=== PATIENT | female | born 1995 | race Caucasian/White ===

== ENCOUNTER 2016-11-13 06:12 | Emergency (ER) | payer MEDICAID, OTHER ==
[2016-11-13 06:18] VITALS: RESP 18
[2016-11-13] MEDS ORDERED: KETOROLAC 30 MG/ML 1 ML VIAL IVP STA (06:34)
[2016-11-13] MEDS ORDERED: SODIUM CHLORIDE 0.9% 1,000 ML IV STA (06:34)
[2016-11-13] MEDS ORDERED: ONDANSETRON 4 MG/2 ML VIAL IVP STA (06:34)
--- NOTE | 2016-11-13 06:37 | ED ---
General Adult HPI - General Source: patient, RN notes reviewed Mode of arrival: ambulatory Limitations: no limitations <Frank Armstrong - Last Filed: 11/13/16 06:36> <Canelo Torres - Last Filed: 11/13/16 07:45> - General Chief complaint: Headache Stated complaint: headache,back pain Time Seen by Provider: 11/13/16 06:29 - History of Present Illness Initial comments: 20-year-old female with no significant past medical history presents for evaluation of headache and neck pain. Patient fell at work yesterday which was approximately 26 hours ago. She fell into a box of bagels. She is uncertain if she hit her head. There was no loss of consciousness. She has had worsening occipital headache and neck pain since that time. Denies any focal weakness. Does report nausea. No vision changes. No significant vomiting. No abdominal pain. No other injuries noted. (Frank Armstrong) - Related Data Home Medications Medication Instructions Recorded Confirmed Control (Unknown) 1 tab PO HS 11/13/16 11/13/16 Allergies Allergy/AdvReac Type Severity Reaction Status Date / Time No Known Allergies Allergy Verified 11/13/16 07:43 Review of Systems ROS Other: All systems not noted in ROS Statement are negative. <Frank Armstrong - Last Filed: 11/13/16 06:36> ROS Other: All systems not noted in ROS Statement are negative. <Canelo Torres - Last Filed: 11/13/16 07:45> ROS Statement: Those systems with pertinent positive or pertinent negative responses have been documented in the HPI. Past Medical History Past Medical History: No Reported History History of Any Multi-Drug Resistant Organisms: None Reported Past Surgical History: No Surgical Hx Reported Past Psychological History: No Psychological Hx Reported Smoking Status: Never smoker Past Alcohol Use History: None Reported Past Drug Use History: None Reported <Frank Armstrong - Last Filed: 11/13/16 06:36> General Exam Limitations: no limitations General appearance: alert, in no apparent distress Head exam: Present: atraumatic, normocephalic Eye exam: Present: normal appearance, PERRL ENT exam: Present: normal exam Neck exam: Present: normal inspection, tenderness (Bilateral trapezius tenderness to palpation, no midline tenderness) Respiratory exam: Present: normal lung sounds bilaterally. Absent: respiratory distress Cardiovascular Exam: Present: regular rate, normal rhythm GI/Abdominal exam: Present: soft. Absent: distended, tenderness Extremities exam: Present: normal inspection, full ROM, normal capillary refill. Absent: pedal edema Back exam: Present: full ROM. Absent: tenderness Neurological exam: Present: alert, oriented X3, CN II-XII intact. Absent: motor sensory deficit Psychiatric exam: Present: normal affect, normal mood Skin exam: Present: warm, dry, intact <Frank Armstrong - Last Filed: 11/13/16 06:36> General appearance: alert, in no apparent distress Head exam: Present: atraumatic, normocephalic, normal inspection Eye exam: Present: normal appearance, PERRL, EOMI. Absent: scleral icterus, conjunctival injection, periorbital swelling ENT exam: Present: normal exam, mucous membranes moist Neck exam: Present: normal inspection. Absent: tenderness, meningismus, lymphadenopathy Respiratory exam: Present: normal lung sounds bilaterally. Absent: respiratory distress, wheezes, rales, rhonchi, stridor Cardiovascular Exam: Present: regular rate, normal rhythm, normal heart sounds. Absent: systolic murmur, diastolic murmur, rubs, gallop, clicks GI/Abdominal exam: Present: soft, normal bowel sounds. Absent: distended, tenderness, guarding, rebound, rigid Extremities exam: Present: normal inspection, full ROM, normal capillary refill. Absent: tenderness, pedal edema, joint swelling, calf tenderness Back exam: Present: normal inspection Neurological exam: Present: alert, oriented X3, CN II-XII intact Psychiatric exam: Present: normal affect, normal mood Skin exam: Present: warm, dry, intact, normal color. Absent: rash <Canelo Torres - Last Filed: 11/13/16 07:45> Course <Frank Armstrong - Last Filed: 11/13/16 06:36> <Canelo Torres - Last Filed: 11/13/16 07:45> Vital Signs 11/13/16 06:15 Temperature 97.9 F Pulse Rate 81 Respiratory 18 Rate Blood Pressure 138/88 O2 Sat by Pulse 100 Oximetry - Reevaluation(s) Reevaluation #1: 11/13/16 07:44 The patient continues to complain of headache although she states that she does have history of chronic headaches prior headaches, usually takes she takes over- the-counter Tylenol and caffeine to help with headaches (Canelo Torres) Reevaluation #2: 11/13/16 07:44 Repeat exam and no neurological findings are noted, patient's headache is improved (Canelo Torres) Reevaluation #3: 11/13/16 07:45 Discussed positive risk benefits of CAT scan, with chronic headache in nature and no traumatic head injury, deciding against CAT scan at this time (Canelo Torres) Medical Decision Making <Frank Armstrong - Last Filed: 11/13/16 06:36> - Lab Data Result diagrams: 11/13/16 06:40 11/13/16 06:40 <Canelo Torres - Last Filed: 11/13/16 07:45> - Medical Decision Making 20 female in the ER for evaluation. Patient does state for evaluation regarding headache. Headache is chronic in nature, patient also admits to recent fall. No trauma or injury. All. Headache at this point is resolved. Patient will be discharged home (Canelo Torres) - Lab Data Lab Results 11/13/16 11/13/16 11/13/16 Range/Units 06:40 06:40 06:40 WBC 10.6 (4.0-11.0) k/uL RBC 5.12 (3.80-5.40) m/uL Hgb 14.4 (11.4-16.0) gm/dL Hct 42.6 (34.0-46.0) % MCV 83.3 (80.0-100.0) fL MCH 28.1 (25.0-35.0) pg MCHC 33.7 (31.0-37.0) g/dL RDW 13.3 (11.5-15.5) % Plt Count 487 H (150-450) k/uL Sodium 141 (137-145) mmol/L Potassium 3.4 L (3.5-5.1) mmol/L Chloride 104 (98-107) mmol/L Carbon Dioxide 22 (22-30) mmol/L Anion Gap 15 mmol/L BUN 10 (7-17) mg/dL Creatinine 0.67 (0.52-1.04) mg/dL Est GFR (MDRD) Af Amer >60 (>60 ml/min/1.73 sqM) Est GFR (MDRD) Non-Af >60 (>60 ml/min/1.73 sqM) Glucose 86 (74-99) mg/dL Calcium 9.7 (8.4-10.2) mg/dL Total Bilirubin 0.3 (0.2-1.3) mg/dL AST 25 (14-36) U/L ALT 27 (9-52) U/L Alkaline Phosphatase 118 (38-126) U/L Total Protein 8.2 (6.3-8.2) g/dL Albumin 4.7 (3.5-5.0) g/dL Urine Color Urine Appearance (Clear) Urine pH (5.0-8.0) Ur Specific Fitzhugh (1.001-1.035) Urine Protein (Negative) Urine Glucose (UA) (Negative) Urine Ketones (Negative) Urine Blood (Negative) Urine Nitrite (Negative) Urine Bilirubin (Negative) Urine Urobilinogen (<2.0) mg/dL Ur Leukocyte Esterase (Negative) Urine RBC (0-5) /hpf Urine WBC (0-5) /hpf Ur Squamous Epith Cells (0-4) /hpf Urine Mucus (None) /hpf Urine HCG, Qual Not Detected (Not Detectd) 11/13/16 Range/Units 06:40 WBC (4.0-11.0) k/uL RBC (3.80-5.40) m/uL Hgb (11.4-16.0) gm/dL Hct (34.0-46.0) % MCV (80.0-100.0) fL MCH (25.0-35.0) pg MCHC (31.0-37.0) g/dL RDW (11.5-15.5) % Plt Count (150-450) k/uL Sodium (137-145) mmol/L Potassium (3.5-5.1) mmol/L Chloride (98-107) mmol/L Carbon Dioxide (22-30) mmol/L Anion Gap mmol/L BUN (7-17) mg/dL Creatinine (0.52-1.04) mg/dL Est GFR (MDRD) Af Amer (>60 ml/min/1.73 sqM) Est GFR (MDRD) Non-Af (>60 ml/min/1.73 sqM) Glucose (74-99) mg/dL Calcium (8.4-10.2) mg/dL Total Bilirubin (0.2-1.3) mg/dL AST (14-36) U/L ALT (9-52) U/L Alkaline Phosphatase (38-126) U/L Total Protein (6.3-8.2) g/dL Albumin (3.5-5.0) g/dL Urine Color Yellow Urine Appearance Clear (Clear) Urine pH 6.0 (5.0-8.0) Ur Specific Fitzhugh 1.026 (1.001-1.035) Urine Protein 1+ H (Negative) Urine Glucose (UA) Negative (Negative) Urine Ketones Negative (Negative) Urine Blood Small H (Negative) Urine Nitrite Negative (Negative) Urine Bilirubin Negative (Negative) Urine Urobilinogen <2.0 (<2.0) mg/dL Ur Leukocyte Esterase Negative (Negative) Urine RBC 4 (0-5) /hpf Urine WBC 2 (0-5) /hpf Ur Squamous Epith Cells 2 (0-4) /hpf Urine Mucus Rare H (None) /hpf Urine HCG, Qual (Not Detectd) Disposition <Frank Armstrong - Last Filed: 11/13/16 06:36> <Canelo Torres - Last Filed: 11/13/16 07:45> Clinical Impression: Migraine, Headache Disposition: HOME SELF-CARE Condition: Good Instructions: Acute Headache (ED) Referrals: Brodie Rendon III, MD [Primary Care Provider] - 1-2 days
[2016-11-13 07:06] LABS: CH 26.6; CHCM 32.1; HCT 42.6 % (34.0-46.0); HGB 14.4 gm/dL (11.4-16.0); MCH 28.1 pg (25.0-35.0); MCHC 33.7 g/dL (31.0-37.0); MCV 83.3 fL (80.0-100.0); Mean Platelet Volume 7.4; RBC 5.12 m/uL (3.80-5.40); RDW 13.3 % (11.5-15.5); WBC 10.6 k/uL (4.0-11.0); WBC (Perox) 10.24
[2016-11-13 07:09] LABS: Appearance,Urine Clear (Clear); Bilirubin,Urine Negative (Negative); Glucose,Urine (UA) Negative (Negative); Ketones,Urine Negative (Negative); Leukocyte Esterase,Urine Negative (Negative); Mucus,Urine Rare /hpf; Nitrite,Urine Negative (Negative); Particle Count 4300; Protein,Urine 1+ (Negative); RBC,Urine 4 /hpf (0-5); Specific Gravity,Urine 1.026 (1.001-1.035); Squamous Epithelial Cell,Urine 2 /hpf (0-4); UA Billing (MACRO vs. MICRO) MICRO; Urobilinogen,Urine <2.0 mg/dL (<2.0); WBC,Urine 2 /hpf (0-5)
[2016-11-13 07:14] LABS: ALT 27 U/L (9-52); AST 25 U/L (14-36); Alkaline Phosphatase 118 U/L (38-126); Anion Gap 15 mmol/L; Blood Urea Nitrogen 10 mg/dL (7-17); Calcium 9.7 mg/dL (8.4-10.2); Carbon Dioxide 22 mmol/L (22-30); Chloride 104 mmol/L (98-107); Glucose 86 mg/dL (74-99); Non-African American GFR(MDRD) >60 (>60 ml/min/1.73 sqM); Potassium 3.4 mmol/L (3.5-5.1); Sodium 141 mmol/L (137-145); Total Bilirubin 0.3 mg/dL (0.2-1.3); Total Protein 8.2 g/dL (6.3-8.2)
[2016-11-13] MEDS ORDERED: MORPHINE SULFATE 4 MG/ML SYRINGE IVP STA (07:44)
[2016-11-13] MEDS ORDERED: diphenhydrAMINE 50 MG/ML 1 ML VIAL IVP STA (07:44)
[2016-11-13] MEDS ORDERED: PROCHLORPERAZINE 5 MG TAB PO STA (07:44)
[2016-11-13 07:53] LABS: Add Differential Manual Differential
[2016-11-13 07:59] LABS: Nucleated Red Blood Cells 0 /100 WBC (0-0); Total Cells Counted 200
[2016-11-13 08:11] VITALS: BP 129/72; PULSE 73
[2016-11-13 08:13] LABS: Reactive Lymphocytes Present
[2016-11-13 08:14] LABS: Manual Review Performed
[2016-11-13 08:15] LABS: Partial Thromboplastin Time 24.4 sec (22.0-30.0); Prothrombin Time 10.1 sec (9.0-12.0)
[2016-11-13 08:34] VITALS: TEMP 98
== END 2016-11-13 08:34 | disposition home or self-care (01) ==
LOC: EC 06:12
DX: G43.909 Migraine, unspecified, not intractable, without status migrainosus (principal); M54.2 Cervicalgia; R11.0 Nausea; Z79.3 Long term (current) use of hormonal contraceptives
CPT/HCPCS: 99284 ×2; 96374 ×2; 96375 ×4; 96361 ×2; 36415; 83880; 80053; 85025; 85610; 85730; 81001; 81025; S0183; J2270; J1200; J2405; J1885

== ENCOUNTER → 2017-02-01 | Outpatient (CLI) | payer BC ==
[2017-02-02 15:51] LABS: ALT 39 U/L (9-52); AST 27 U/L (14-36); Alkaline Phosphatase 103 U/L (38-126); Anion Gap 13 mmol/L; Blood Urea Nitrogen 10 mg/dL (7-17); Calcium 9.8 mg/dL (8.4-10.2); Carbon Dioxide 25 mmol/L (22-30); Chloride 104 mmol/L (98-107); Glucose 81 mg/dL (74-99); Non-African American GFR(MDRD) >60 (>60 ml/min/1.73 sqM); Potassium 4.1 mmol/L (3.5-5.1); Sodium 142 mmol/L (137-145); Total Bilirubin 0.3 mg/dL (0.2-1.3)
[2017-02-02 18:55] LABS: Cholesterol 181 mg/dL (<200); HDL Cholesterol 59 mg/dL (40-60)
== END | disposition home or self-care (01) ==
LOC: LABWHC1 10:42
PROVIDERS: ATTEND Nurse Practitioner Family
DX: Z13.29 Encounter for screening for other suspected endocrine disorder (principal); Z13.220 Encounter for screening for lipoid disorders
CPT/HCPCS: 36415; 80053; 80061; 84439; 84443

== ENCOUNTER → 2018-01-10 | Outpatient (CLI) | payer BC ==
--- NOTE | 2018-01-10 12:52 | US ---
EXAMINATION TYPE: US pelvic complete DATE OF EXAM: 01/10/2018 COMPARISON: NONE CLINICAL HISTORY: R10.9 Unspecified abdominal pain. Generalized pain TECHNIQUE: Transabdominal (TA). Transabdominal sonographic images of the pelvis were acquired. Date of LMP: 11/09/2017, G0 EXAM MEASUREMENTS: Uterus: 6.8 x 3.0 x 2.7 cm Endometrial Stripe: 0.3 cm Right Ovary: 2.7 x 1.4 x 1.7 cm Left Ovary: 3.1 x 1.8 x 1.5 cm 1. Uterus: Anteverted wnl 2. Endometrium: wnl 3. Right Ovary: wnl 4. Left Ovary: wnl 5. Bilateral Adnexa: wnl 6. Posterior cul-de-sac: no free fluid Cervix- wnl IMPRESSION: No distinct abnormality appreciated.
== END | disposition home or self-care (01) ==
LOC: RADUSWWP 12:13
PROVIDERS: ATTEND Family Medicine
DX: R10.9 Unspecified abdominal pain (principal)
CPT/HCPCS: 76856

== ENCOUNTER → 2018-12-01 | Outpatient (CLI) | payer BC ==
[2018-12-01 15:23] LABS: Basophils % (A) 0 %; Eosinophils # (A) 0.1 k/uL (0-0.7); Eosinophils % (A) 1 %; HCT 42.6 % (34.0-46.0); HGB 14.1 gm/dL (11.4-16.0); Lymphocytes # (A) 3.1 k/uL (1.0-4.8); Lymphocytes % (A) 29 %; MCH 28.4 pg (25.0-35.0); MCHC 33.2 g/dL (31.0-37.0); MCV 85.4 fL (80.0-100.0); Monocytes # (A) 0.6 k/uL (0-1.0); Monocytes % (A) 5 %; Neutrophils # (A) 6.6 k/uL (1.3-7.7); Neutrophils % (A) 62 %; Platelet Count 676 k/uL (150-450); RBC 4.99 m/uL (3.80-5.40); RDW 13.1 % (11.5-15.5); WBC 10.6 k/uL (3.8-10.6)
[2018-12-01 18:27] LABS: ALT 36 U/L (8-44); AST 22 U/L (13-35); African American GFR (CKD) 142.5 (60.0-200.0); Albumin/Globulin Ratio 2.35 (1.60-3.17); Alkaline Phosphatase 106 U/L (41-126); BUN/Creat Ratio 14.29 Ratio (12.00-20.00); Calcium 10.2 mg/dL (8.7-10.3); Carbon Dioxide 27.4 mmol/L (21.6-31.8); Chloride 106 mmol/L (96-109); Glucose 102 mg/dL (70-110); Potassium 4.7 mmol/L (3.5-5.5); Sodium 140 mmol/L (135-145); Total Bilirubin 0.3 mg/dL (0.3-1.2); Total Protein 6.7 g/dL (6.2-8.2)
[2018-12-01 18:44] LABS: HCG,Quantitative Serum <2.0 mIU/mL
== END | disposition home or self-care (01) ==
LOC: LABWHC1 14:27
PROVIDERS: ATTEND Nurse Practitioner Family
DX: R42 Dizziness and giddiness (principal); N91.2 Amenorrhea, unspecified
CPT/HCPCS: 36415; 80053; 84439; 84443; 84702; 85025

== ENCOUNTER → 2019-01-15 | Outpatient (CLI) | payer BC ==
--- NOTE | 2019-01-16 08:33 | ECHOF ---
Referral Reason:R42 dizziness MEASUREMENTS -------- HEIGHT: 165.1 cm WEIGHT: 97.5 kg BP: IVSd: 0.9 cm (0.6 - 1.1) LVIDd: 4.3 cm (3.9 - 5.3) LVPWd: 0.9 cm (0.6 - 1.1) IVSs: 1.7 cm LVIDs: 1.8 cm LVPWs: 1.9 cm LAESV Index (A-L): 15.36 ml/m Ao Diam: 2.3 cm (2.0 - 3.7) AV Cusp: 1.8 cm (1.5 - 2.6) LA Diam: 3.0 cm (2.7 - 3.8) MV EXCURSION: 20.824 mm (> 18.000) MV EF SLOPE: 116 mm/s (70 - 150) EPSS: 0.5 cm MV E Ez: 1.06 m/s MV DecT: 260 ms MV A Ez: 0.48 m/s MV E/A Ratio: 2.20 RAP: 5.00 mmHg RVSP: 30.49 mmHg FINDINGS -------- Sinus rhythm. This was a technically good study. The left ventricular size is normal. Left ventricular wall thickness is normal. Overall left vent ricular systolic function is normal with, an EF between 55 - 60 %. The diastolic filling pattern is normal for the age of the patient 10.90. The right ventricle is normal in size. The left atrial size is normal. Normal LA size by volume 22+/-6 ml/m2. The right atrial size is normal. Interatrial and interventricular septum intact. The aortic valve is trileaflet and appears structurally normal. The mitral valve is normal. There is trace mitral regurgitation. The tricuspid valve appears structurally normal. Trace tricuspid regurgitation present. Right fabricio tricular systolic pressure is normal at < 35 mmHg. There is no pulmonic regurgitation present. The aortic root size is normal. Normal inferior vena cava with normal inspiratory collapse consistent with estimated right atrial pre ssure of 5 mmHg. There is no pericardial effusion. CONCLUSIONS -------- 1. Sinus rhythm. 2. This was a technically good study. 3. The left ventricular size is normal. 4. Left ventricular wall thickness is normal. 5. Overall left ventricular systolic function is normal with, an EF between 55 - 60 %. 6. The diastolic filling pattern is normal for the age of the patient 10.90 7. The right ventricle is normal in size. 8. The left atrial size is normal. 9. Normal LA size by volume 22+/-6 ml/m2. 10. The right atrial size is normal. 11. Interatrial and interventricular septum intact. 12. The aortic valve is trileaflet and appears structurally normal. 13. The mitral valve is normal. 14. There is trace mitral regurgitation. 15. The tricuspid valve appears structurally normal. 16. Trace tricuspid regurgitation present. 17. Right ventricular systolic pressure is normal at < 35 mmHg. 18. There is no pulmonic regurgitation present. 19. The aortic root size is normal. 20. Normal inferior vena cava with normal inspiratory collapse consistent with estimated right atrial pressure of 5 mmHg. 21. There is no pericardial effusion. ENVIRONMENTAL SERVICES SPECIALIST: Haylie Kaba RDCS
== END | disposition home or self-care (01) ==
LOC: RADECHMAIN 13:05
PROVIDERS: ATTEND Nurse Practitioner Family
DX: R42 Dizziness and giddiness (principal); Z88.0 Allergy status to penicillin
CPT/HCPCS: 93005; 93306

== ENCOUNTER → 2022-09-05 | Outpatient (CLI) | payer BC | END | disposition home or self-care (01) | LOC: LABWHC1 11:40 | PROVIDERS: ATTEND Physician Assistant | DX: O20.0 Threatened abortion (principal); Z3A.00 Weeks of gestation of pregnancy not specified | CPT/HCPCS: 36415; 84702 ==

== ENCOUNTER → 2022-12-19 | Outpatient (CLI) | payer BC | END | disposition home or self-care (01) | LOC: LABWHC1 15:18 | PROVIDERS: ATTEND Obstetrics & Gynecology | DX: O20.0 Threatened abortion (principal); Z3A.00 Weeks of gestation of pregnancy not specified | CPT/HCPCS: 36415; 84702 ==

== ENCOUNTER → 2022-12-21 | Outpatient (CLI) | payer BC | END | disposition home or self-care (01) | LOC: LABWHC1 10:50 | PROVIDERS: ATTEND Obstetrics & Gynecology | DX: O20.0 Threatened abortion (principal); Z3A.00 Weeks of gestation of pregnancy not specified | CPT/HCPCS: 36415; 84702 ==

== ENCOUNTER 2023-05-03 20:42 | Emergency (ER) | payer OTHER, BC ==
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
[2023-05-03 21:27] LABS: Basophils # (A) 0.1 k/uL (0-0.2); Basophils % (A) 0 %; Eosinophils # (A) 0.2 k/uL (0-0.7); Eosinophils % (A) 1 %; HCT 38.6 % (34.0-46.0); HGB 12.7 gm/dL (11.4-16.0); Lymphocytes # (A) 3.2 k/uL (1.0-4.8); Lymphocytes % (A) 18 %; MCH 28.4 pg (25.0-35.0); MCHC 32.9 g/dL (31.0-37.0); MCV 86.2 fL (80.0-100.0); Mean Platelet Volume 9.2; Monocytes % (A) 5 %; Neutrophils # (A) 12.8 k/uL (1.3-7.7); Neutrophils % (A) 74 %; Platelet Count 312 k/uL (150-450); RBC 4.48 m/uL (3.80-5.40); RDW 13.1 % (11.5-15.5); WBC 17.4 k/uL (3.8-10.6)
[2023-05-03 21:32] LABS: Potassium 3.6 mmol/L (3.5-5.1)
[2023-05-03 21:34] LABS: ALT 15 U/L (4-34); AST 24 U/L (14-36); African American GFR (CKD) >90 (>60 ml/min/1.73 sqM); Albumin 3.9 g/dL (3.5-5.0); Alcohol <10 mg/dL; Alkaline Phosphatase 101 U/L (38-126); Anion Gap 11 mmol/L; Blood Urea Nitrogen 11 mg/dL (7-17); Calcium 9.2 mg/dL (8.4-10.2); Carbon Dioxide 15 mmol/L (22-30); Chloride 110 mmol/L (98-107); Glucose 96 mg/dL (74-99); Non-African American GFR(CKD) >90 (>60 ml/min/1.73 sqM); Sodium 136 mmol/L (137-145); Total Bilirubin 0.3 mg/dL (0.2-1.3); Total Protein 7.1 g/dL (6.3-8.2)
[2023-05-03 21:36] VITALS: TEMP 98.7
[2023-05-03 21:37] LABS: INR 0.9 (<1.2); Partial Thromboplastin Time 22.7 sec (22.0-30.0); Prothrombin Time 9.8 sec (10.0-12.5)
[2023-05-03 22:11] LABS: Amorphous Sediment,Urine Rare /hpf; Appearance,Urine Cloudy (Clear); Bacteria,Urine Rare /hpf; Bilirubin,Urine Negative (Negative); Blood,Urine Negative (Negative); Color,Urine Yellow; Glucose,Urine (UA) Negative (Negative); Hyaline Casts,Urine 3 /lpf (0-2); Ketones,Urine Negative (Negative); Leukocyte Esterase,Urine Moderate (Negative); Mucus,Urine Many /hpf; Nitrite,Urine Negative (Negative); Protein,Urine 1+ (Negative); RBC,Urine 2 /hpf (0-5); Specific Gravity,Urine 1.026 (1.001-1.035); Squamous Epithelial Cell,Urine 13 /hpf (0-4); Urobilinogen,Urine <2.0 mg/dL (<2.0); WBC,Urine 17 /hpf (0-5)
[2023-05-03 22:21] LABS: Amphetamine Screen,Urine Not Detected (NotDetected); Barbiturate Screen,Urine Not Detected (NotDetected); Benzodiazepines Screen,Urine Not Detected (NotDetected); Cocaine Screen,Urine Not Detected (NotDetected); Methadone Screen, Urine Not Detected (NotDetected); Opiate Screen,Urine Not Detected (NotDetected); Oxycodone Screen, Urine Not Detected (NotDetected); Phencyclidine Screen,Urine Not Detected (NotDetected); Tricyclic Antidepressant,Urine Not Detected (NotDetected); Urn Cannabinoid Scrn Not Detected (NotDetected)
[2023-05-03 22:52] VITALS: BP 138/80; PULSE 82; RESP 18
== END 2023-05-03 22:30 | disposition home or self-care (01) ==
LOC: EC 20:42
DX: O9A.212 Injury, poisoning and certain other consequences of external causes complicating pregnancy, second trimester (principal); S80.02XA Contusion of left knee, initial encounter; S80.01XA Contusion of right knee, initial encounter; Z88.0 Allergy status to penicillin; V89.2XXA Person injured in unspecified motor-vehicle accident, traffic, initial encounter; Y92.410 Unspecified street and highway as the place of occurrence of the external cause; Z3A.00 Weeks of gestation of pregnancy not specified
CPT/HCPCS: 36415; 80053; 80306; 80320; 81001; 85025; 85610; 85730; 86850; 86900; 86901; 99284

== ENCOUNTER 2023-08-14 05:41 | Inpatient (IN) | payer BC ==
[2023-08-14] MEDS ORDERED: LIDOCAINE 0.5% (PF) 5 MG/ML (50 ML SDV) SQ PRN (06:00)
[2023-08-14] MEDS ORDERED: TERBUTALINE 1 MG/ML VIAL SQ PRN (06:00)
[2023-08-14] MEDS ORDERED: miSOPROStoL 200 MCG TAB PO PRN (06:00)
[2023-08-14] MEDS ORDERED: TRANEXAMIC 1,000 MG/100ML-NACL 1,000 MG in EMPTY BAG 1 BAG IV PRN (06:00)
[2023-08-14] MEDS ORDERED: CARBOPROST TROMETHAMINE 250 MCG/ML 1 ML AMP IM PRN (06:00)
[2023-08-14] MEDS ORDERED: OXYTOCIN 10 UNIT/ML 1 ML VIAL IM PRN (06:00)
[2023-08-14] MEDS ORDERED: miSOPROStoL 200 MCG TAB RECTAL PRN (06:00)
[2023-08-14] MEDS ORDERED: METHYLERGONOVINE 0.2 MG/ML 1 ML AMP IM PRN (06:00)
[2023-08-14] MEDS: LACTATED RINGERS 1,000 ML IV SCH ×2 (06:28→23:16)
[2023-08-14] MEDS: OXYTOCIN 30 UNITS/500 ML NS 30 UNIT in SALINE 1 500ML.BAG IV SCH (07:09)
[2023-08-14 08:44] LABS: Basophils % (A) 0 %; Eosinophils # (A) 0.1 k/uL (0-0.7); Eosinophils % (A) 0 %; HCT 33.2 % (34.0-46.0); HGB 10.2 gm/dL (11.4-16.0); Hypochromasia Moderate; Lymphocytes # (A) 2.4 k/uL (1.0-4.8); Lymphocytes % (A) 17 %; MCH 23.6 pg (25.0-35.0); MCHC 30.6 g/dL (31.0-37.0); MCV 76.9 fL (80.0-100.0); Mean Platelet Volume 9.7; Microcytosis Slight; Monocytes # (A) 0.7 k/uL (0-1.0); Monocytes % (A) 5 %; Neutrophils # (A) 11.2 k/uL (1.3-7.7); Neutrophils % (A) 77 %; Platelet Count 361 k/uL (150-450); RBC 4.31 m/uL (3.80-5.40); RDW 15.1 % (11.5-15.5); WBC 14.6 k/uL (3.8-10.6)
[2023-08-14] MEDS ORDERED: NALBUPHINE 10 MG/ML (10 ML MDV) IV PRN (08:45)
--- NOTE | 2023-08-14 08:45 | P.HPOB ---
History of Present Illness H&P Date: 08/14/23 Chief Complaint: 39-2/7 weeks, induction The patient is a 27-year-old 2 para 0-0-1-0 admitted at 39-2/7 weeks as established by last menstrual period and confirmed by 6-week ultrasound. She is admitted for elective induction of labor with all signs reassuring and a favorable cervix, there is a category 1 heart rate tracing. Her has been entirely uncomplicated though she is known to be group B strep positive. Obstetrical history: 2 para 0-0-1-0 with current statistics listed in history of present illness. EDC of 08/19/2023 was established by last menstrual period and confirmed by 6-week ultrasound. Laboratory workup demonst rates a blood type of O+ with a negative antibody screen. Rubella status is immune. The remainder of the laboratory workup was within normal limits. Early Glucola and second trimester Glucola were both negative. Group B strep status is positive. Gynecologic history: Unremarkable with no history of any infections to include STDs. Review of Systems Review of systems is confined to history of present illness. Past Medical History Past Medical History: No Reported History History of Any Multi-Drug Resistant Organisms: None Reported Past Surgical History: No Surgical Hx Reported Past Psychological History: No Psychological Hx Reported Smoking Status: Never smoker Past Alcohol Use History: None Reported Past Drug Use History: None Reported Medications and Allergies Home Medications Medication Instructions Recorded Confirmed Type Acetaminophen Tab [Tylenol Tab] 1,000 mg PO Q6HR PRN 09/03/22 08/14/23 History Kit-Ofea-Srtrm Acid 1 cap PO DAILY 09/03/22 08/14/23 History [-U Capsule (formulary)] Allergies Allergy/AdvReac Type Severity Reaction Status Date / Time Penicillins Allergy Unknown Verified 09/03/22 12:34 Childhood Exam Vital Signs Temp Pulse Resp BP Pulse Ox 08/14/23 05:57 97.7 F 88 16 118/72 98 Intake and Output 08/13/23 08/14/23 08/14/23 22:59 06:59 14:59 Other: # Voids 1 Weight 101.151 kg In general, this is a well-developed, well-nourished white female in no acute distress. Her heart has a regular rhythm and rate without murmur. Her lungs are clear to auscultation bilaterally in all arias. Her abdomen is gravid, nondistended, has normal active bowel sounds, is soft, nontender, and without any palpable masses aside from the uterine fundus. Her extremities are without any cyanosis, clubbing, or significant edema and are nontender to palpation bilaterally. Digital cervical examination demonstrates her cervix to be 2 to 3 cm dilated, approximately 50% effaced, with a vertex and presentation at -2 station. Artificial rupture of membranes is carried out demonstrating clear fluid. Assessment and Plan (1) Term Current Visit: Yes Status: Acute Code(s): Z34.90 - ENCNTR FOR SUPRVSN OF NORMAL , UNSP, UNSP TRIMESTER SNOMED Code(s): 14887353 (2) Mother positive for group B Streptococcus colonization Current Visit: Yes Status: Acute Code(s): P00.82 - NB AFF BY (POSITIVE) MATERN GROUP B STREP (GBS) COLONIZATION SNOMED Code(s): 95168947957374 Plan: Is admitted for elective induction of labor with all signs reassuring. Pitocin augmentation has been started and artificial rupture of membranes carried out. Antibiotic prophylaxis has been started. She will have close maternal and surveillance and expectant management will be practiced. She is a good candidate for either IV, epidural, or nitrous analgesia, whichever she may choose.
[2023-08-14] MEDS: CITRIC ACID-SODIUM CITRATE 15 ML CUP PO ONE (20:44)
[2023-08-14] MEDS ORDERED: KETOROLAC 15 MG/ML 1 ML VIAL ONE (21:44)
[2023-08-14] MEDS ORDERED: MORPHINE SULFATE (PF) 0.3 MG/0.3 ML SYR ONE (21:44)
[2023-08-14] MEDS ORDERED: METOCLOPRAMIDE 5 MG/ML 2 ML VIAL IVP PRN (22:38)
[2023-08-14] MEDS ORDERED: NALOXONE 0.4 MG/ML 1 ML VIAL IV PRN (22:38)
[2023-08-14] MEDS ORDERED: ONDANSETRON 4 MG/2 ML VIAL IVP PRN (22:38)
[2023-08-14] MEDS ORDERED: diphenhydrAMINE 50 MG/ML 1 ML VIAL IVP PRN (22:38)
[2023-08-14] MEDS ORDERED: diphenhydrAMINE 50 MG CAP PO PRN (22:38)
[2023-08-14] MEDS ORDERED: ZOLPIDEM 5 MG TAB PO PRN (22:38)
[2023-08-14] MEDS ORDERED: SIMETHICONE 80 MG CHEWABLE PO PRN (22:38)
[2023-08-14] MEDS ORDERED: LANOLIN CREAM 1 GM TUBE TOPICAL PRN (22:38)
[2023-08-14] MEDS ORDERED: diphenhydrAMINE 25 MG CAP PO PRN (22:38)
[2023-08-14] MEDS ORDERED: OXYTOCIN 30 UNITS/500 ML NS 30 UNIT in SALINE 1 500ML.BAG IV SCH (22:45)
--- NOTE | 2023-08-14 22:45 | P.OP ---
Date of Procedure: 08/14/23 Preoperative Diagnosis: 1. 40-0/7 weeks, induction #2. Maternal request for primary section Postoperative Diagnosis: Same plus #3. Right occiput transverse position Procedure(s) Performed: #1. Primary low-transverse section, maternal request Anesthesia: spinal Surgeon: Mario Galan Scallop Cutter #1: Petra Wall Estimated Blood Loss (ml): 555 IV fluids (ml): 500 Urine output (ml): 100 Pathology: none sent Condition: stable Disposition: floor Operative Findings: Patient had been in labor all day and progressed ultimately to approximately 8 cm dilation with very little descent of the head below -2 station. A significant degree of caput and molding was noted to be present. She remained approximately 8 to 9 cm for approximately 4 to 6 hours at which time she requested to proceed to primary low-transverse section. She was taken to the operating room where she was delivered of a viable 7 pound 8 ounce baby boy with Apgars of 8 at 1 minute and 9 at 5 minutes in the right occiput transverse position. The placenta was delivered manually, intact, and grossly normal with a grossly normal three-vessel cord. The uterus, tubes, and ovaries were entirely normal to inspection though there was some very small, less than half centimeter subserosal fibroids on the posterior aspect of the uterus. Description of Procedure: Patient was prepped and draped in usual fashion after spinal anesthesia was administered by the anesthesiologist. A Pfannenstiel incision was made and extended into the abdominal cavity without difficulty. The bladder peritoneum was significantly distal to the intended site of uterine incision and was left intact. A 2 cm incision was made in the transverse plane of the lower uterine segment to enter the uterus at which time clear fluid was again noted. The incision was extended in both directions using the bandage scissors. The head was wedged into the pelvis fairly tightly though not deep. The head was elevated up and through the incision where the nose and mouth were thoroughly suctioned. The remainder of the was delivered onto the field where the cord was doubly clamped, cut, and the passed for resuscitative measures with weight and Apgars as noted above. The placenta was then delivered manually, intact, grossly normal with a grossly normal three-vessel cord as noted above. The uterus was exteriorized and the anterior cavity of the uterus swept of any remaining placental or membranous fragments. The margins of the uterine incision were grasped with Mitchell clamps and the incision closed in 2 layers. The first layer was a running locking stitch of 0 chromic catgut followed by a running imbricating stitch of 0 chromic catgut, each from margin to margin. There was noted to be some ongoing bleeding at the left angle of the incision which was made hemostatic with a single [id number]-[id number] stitch of 0 chromic catgut. The posterior cul-de-sac was suctioned with a guard and the uterus was replaced within the abdominal cavity after noting normal uterine and ovarian findings. The incision was reexamined and noted to be hemostatic. The gutters were swept of any remaining blood, fluid, or clot. The parietal peritoneum was loosely reapproximated and the layer of muscles examined and made hemostatic with the Bovie. The fascia was closed with a single running stitch of 0 Vicryl proceeding from the lateral margin the opposite lateral margin. The subcutaneous tissues were irrigated, made hemostatic with the Bovie, and reapproximated with a running stitch of 3-0 plain catgut. The skin was reapproximated with a running subcuticular stitch of 4-0 Vicryl followed by half-inch Steri-Strips placed with Mastisol. Quantitative blood loss for the case was 555 mL. There were no complications. All sponge, instrument, and needle counts were correct. The patient tolerated the procedure well and proceeded to the recovery room in stable condition. Both mother and are resting comfortably in recovery.
[2023-08-15] MEDS: diphenhydrAMINE 50 MG/ML 1 ML VIAL IVP PRN (00:18)
[2023-08-15] MEDS: ACETAMINOPHEN TAB 500 MG TAB PO SCH (03:43)
[2023-08-15] MEDS: KETOROLAC 15 MG/ML 1 ML VIAL IVP PRN (05:21)
[2023-08-15] MEDS: IBUPROFEN 600 MG TAB PO SCH (05:22)
--- NOTE | 2023-08-15 06:36 | P.PN ---
Progress Note - Text 08/14/23 621am 27-year-old female status post spinal Duramorph. Patient has a VAS of 1 with no complaints of nausea vomiting she does have mild pruritus which should subside by the end of the day
[2023-08-15 07:17] LABS: Basophils % (A) 0 %; Eosinophils % (A) 0 %; HCT 27.6 % (34.0-46.0); HGB 8.8 gm/dL (11.4-16.0); Hypochromasia Marked; Lymphocytes # (A) 2.4 k/uL (1.0-4.8); Lymphocytes % (A) 11 %; MCH 24.3 pg (25.0-35.0); MCHC 31.9 g/dL (31.0-37.0); MCV 76.2 fL (80.0-100.0); Mean Platelet Volume 10.4; Microcytosis Slight; Monocytes % (A) 5 %; Neutrophils # (A) 18.2 k/uL (1.3-7.7); Neutrophils % (A) 83 %; Platelet Count 287 k/uL (150-450); RBC 3.62 m/uL (3.80-5.40); RDW 14.9 % (11.5-15.5); WBC 21.9 k/uL (3.8-10.6)
[2023-08-15] MEDS: SENNOSIDES-DOCUSATE SODIUM 1 EACH TAB PO SCH (08:16)
--- NOTE | 2023-08-15 11:18 | P.PNOBGPC ---
Subjective - Subjective Interval history: Patient has been unable to void since removal of catheter this morning thus far. Patient reports: Reports appetite normal, Reports pain well controlled, Reports ambulating normally : doing well, nursing well Objective - Vital Signs Latest vital signs: Vital Signs Temp Pulse Resp BP Pulse Ox 08/15/23 08:00 98.0 F 89 16 113/79 97 08/15/23 04:00 98.5 F 89 16 111/74 99 08/15/23 00:55 69 16 128/71 99 08/15/23 00:40 78 16 127/74 99 08/15/23 00:25 88 16 128/79 100 08/15/23 00:10 79 16 133/82 97 08/14/23 23:55 71 16 128/73 100 08/14/23 23:40 73 16 129/72 100 08/14/23 23:23 78 16 125/73 100 08/14/23 23:08 80 16 115/58 99 08/14/23 22:55 96.4 F L 90 16 111/55 99 Intake and Output 08/14/23 08/15/23 08/15/23 22:59 06:59 14:59 Output Total 555 1525 Balance -555 -1525 Output: Urine 1400 Estimated Blood Loss 125 Output, Quantitative 555 Blood Loss Other: Voiding Method Indwelling Catheter Indwelling Catheter # Voids 1 - Exam Extremities: Present: normal, edema (2+ bilateral lower extremity edema) Abdomen: Present: normal appearance, soft. Absent: distention, tenderness Incision: Present: normal, dry, intact Uterus: Present: normal, firm (The uterine fundus is tonic and minimally tender below the umbilicus.) - Labs Labs: Abnormal Lab Results - Last 24 Hours (Table) 08/15/23 Range/Units 06:56 WBC 21.9 H (3.8-10.6) k/uL RBC 3.62 L (3.80-5.40) m/uL Hgb 8.8 L (11.4-16.0) gm/dL Hct 27.6 L (34.0-46.0) % MCV 76.2 L (80.0-100.0) fL MCH 24.3 L (25.0-35.0) pg Neutrophils # 18.2 H (1.3-7.7) k/uL Assessment and Plan (1) Term Current Visit: Yes Status: Acute Code(s): Z34.90 - ENCNTR FOR SUPRVSN OF NORMAL , UNSP, UNSP TRIMESTER SNOMED Code(s): 42457577 (2) Mother positive for group B Streptococcus colonization Current Visit: Yes Status: Acute Code(s): P00.82 - NB AFF BY (POSITIVE) MATERN GROUP B STREP (GBS) COLONIZATION SNOMED Code(s): 67693847472435 (3) Status post section Current Visit: Yes Status: Acute Code(s): Z98.891 - HISTORY OF UTERINE SCAR FROM PREVIOUS SURGERY SNOMED Code(s): 949144393 Plan: Continue routine and postoperative care. I have encouraged the patient ambulate in the hallways routinely. She is tolerating a regular diet at this time. I would anticipate discharge home tomorrow pending no complications.
--- NOTE | 2023-08-16 07:11 | P.DS ---
Providers Date of admission: 08/14/23 05:41 Expected date of discharge: 08/16/23 Attending physician: Mario Galan Primary care physician: Stated None - Discharge Diagnosis(es) (1) Term Current Visit: Yes Status: Acute (2) Mother positive for group B Streptococcus colonization Current Visit: Yes Status: Acute (3) Status post section Current Visit: Yes Status: Acute Hospital Course: The patient is a 27-year-old 2 para 0-0-1-0 admitted at 39-2/7 weeks by good dating parameters. She is admitted for elective induction with all signs reassuring and a favorable cervix. heart tones were reassuring with a category 1 heart rate tracing. Her was entirely uncomplicated and she is group B strep positive. As a result she had antibiotic prophylaxis started along with Pitocin augmentation. She underwent artificial rupture of membranes for clear fluid. She made progress throughout the day approximately 8 to 9 cm at which time she did not have any significant further dilation and had no descent of the head below -2 station. After several hours, a discussion was undertaken with the patient at which time I felt that the head was obstructed at the pelvic inlet. I informed her that she could certainly continue as there was no concern at that time but she felt that no further progress was likely and requested primary low-transverse se ction. She was taken to the operating room where she was delivered by primary section of a viable 7 pound 8 ounce baby boy with Apgars of 8 at 1 minute and 9 at 5 minutes. Her and postoperative course was unremarkable with vital signs remaining stable and her temperature was afebrile throughout. She was deemed stable for discharge on and postoperative day #2 and was discharged home to follow-up in the office in 2 weeks for an incision check in 6 weeks routinely. Discharge instructions included calling for any significantly increased bleeding or foul-smelling lochia, significantly increased fever or abdominal pain, perineal complaints, breast complaints, incisional complaints, or anything else that concerned her. She was additionally instructed to have nothing in the vagina for at least 6 weeks time to include intercourse and to abstain from any heavy lifting over the same period of time. She was lastly instructed to do no driving until off of all pa in medications or 2 weeks time, whichever came first. She understood all of her instructions and agrees to follow-up as noted above. Discharge medications included continued vitamins as she has opted to breast-feed. She was additionally to use bedz-wcn-lburxzi analgesic pain medications and declined a prescription for any narcotic pain medications. Discharge hemoglobin and hematocrit were 8.8 and 27.6. The patient was asked to continue or start iron sulfate 325 mg daily to rebuild her hemoglobin. Maternal blood type is O+ and rubella status is immune. Procedures: #1. Pitocin induction #2. Antibiotic prophylaxis #3. Artificial rupture of membranes #4. Primary low-transverse section Patient Condition at Discharge: Stable Plan - Discharge Summary New Discharge Prescriptions: No Action Kzi-Nqlw-Axevz Acid [-U Capsule (formulary)] 1 cap PO DAILY Acetaminophen Tab [Tylenol Tab] 1,000 mg PO Q6HR PRN PRN Reason: Pain Or Fever > 100.5 Discharge Medication List Acetaminophen Tab [Tylenol Tab] 1,000 mg PO Q6HR PRN 09/03/22 [History] Fdl-Rdsa-Dndwr Acid [-U Capsule (formulary)] 1 cap PO DAILY 09/03/22 [History] Follow up Appointment(s)/Referral(s): Mario Galan MD [STAFF PHYSICIAN] - 09/23/23 10:45 am Discharge Disposition: HOME SELF-CARE
[2023-08-16 08:37] VITALS: BP 115/76; PULSE 71; RESP 16; TEMP 98.3
== END 2023-08-16 12:25 | disposition home or self-care (01) | DRG 788 ==
LOC: 4FBP 05:41
PROVIDERS: ADMIT Obstetrics & Gynecology; ATTEND Obstetrics & Gynecology
PROC: 10907ZC Drainage of Amniotic Fluid, Therapeutic from Products of Conception, Via Natural or Artificial Opening (ICD-10-PCS; 2023-08-14)
PROC: 3E033VJ Introduction of Other Hormone into Peripheral Vein, Percutaneous Approach (ICD-10-PCS; 2023-08-14)
PROC: 10D00Z1 Extraction of Products of Conception, Low, Open Approach (ICD-10-PCS; principal; 2023-08-14 22:04)
DX: O99.824 Streptococcus B carrier state complicating childbirth (principal); D25.2 Subserosal leiomyoma of uterus; L29.9 Pruritus, unspecified; O99.73 Diseases of the skin and subcutaneous tissue complicating the puerperium; O34.13 Maternal care for benign tumor of corpus uteri, third trimester; Z37.0 Single live birth; Z3A.39 39 weeks gestation of pregnancy; Z88.0 Allergy status to penicillin
CPT/HCPCS: 85025; 86850; 86900; 86901